=== PATIENT | female | born 1995 | race African-American/Black ===

== ENCOUNTER 2017-10-04 12:44 | Emergency (ER) | payer OTHER ==
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
--- NOTE | 2017-10-04 13:59 | CT ---
Head CT Technique: Multiple axial sections through the brain were obtained. Intravenous contrast was not utilized. Comparison: No previous intracranial imaging. Limitations: Patient's earring causes some artifact. Findings: Ventricles along with basal cisterns and sulci over the convexities are within normal limits for the patient's age. No abnormal parenchymal densities are seen. No evidence of intracranial hemorrhage. No midline shift or mass effect is seen. No discrete calvarial abnormality is seen. Impression: 1. Nothing acute is seen on noncontrast head CT exam. Diagnostic code #1
== END 2017-10-04 14:35 | disposition home or self-care (01) ==
LOC: JD.ED 12:44
DX: S06.0X0A Concussion without loss of consciousness, initial encounter (principal); V19.49XA Pedal cycle driver injured in collision with other motor vehicles in traffic accident, initial encounter; Y92.410 Unspecified street and highway as the place of occurrence of the external cause
CPT/HCPCS: 70450; 70450-26; 99284; 99284-25